=== PATIENT | female | born 2000 | race Caucasian/White ===

== ENCOUNTER → 2023-09-06 | Outpatient (CLI) | payer BC ==
[~2023-09-06] MED LIST: CODGUAEL PO; FALMINA-28 TAB1 EACH PO; IBUP600 PO; ONDA4ODT MM
== END ==
LOC: LAB SHORT 10:13 → LAB 10:13
DX: Z32.00 Encounter for pregnancy test, result unknown (principal)
CPT/HCPCS: 84703

== ENCOUNTER → 2023-10-09 | Outpatient (CLI) | payer BC | LOC: LAB 16:05 → LAB SHORT 16:05 | PROVIDERS: Family Medicine | DX: Z01.419 Encounter for gynecological examination (general) (routine) without abnormal findings (principal) | CPT/HCPCS: G0123 ==

== ENCOUNTER → 2023-11-18 | Outpatient (CLI) | payer BC ==
[2023-11-18 16:32] LABS: BASOPHILS ABSOLUTE AUTO 0.04 K/mm3 (0.00-0.23); BASOPHILS PERCENT AUTO 1 % (0-2); EOSINOPHILS ABSOLUTE AUTO 0.01 K/mm3 (0.00-0.68); EOSINOPHILS PERCENT AUTO 0 % (0-6); Hematocrit 40.3 % (33.0-51.0); IMMATURE GRAN ABSOLUTE AUTO 0.02 K/mm3 (0.00-0.10); IMMATURE GRAN PERCENT AUTO 0 % (0-1); LYMPHOCYTES ABSOLUTE AUTO 1.51 K/mm3 (0.84-5.20); LYMPHOCYTES PERCENT AUTO 17 % (21-46); MONOCYTES ABSOLUTE AUTO 0.41 K/mm3 (0.16-1.47); MONOCYTES PERCENT AUTO 5 % (4-13); Mean Corpuscular HGB 30.6 pg (26.0-34.0); Mean Corpuscular HGB Conc 34.7 g/dL (31.5-36.5); Mean Corpuscular Volume 88 fL (80-100); Mean Platelet Volume 11.4 fL (9.1-12.4); NEUTROPHILS ABSOLUTE AUTO 6.69 K/mm3 (1.96-9.15); NEUTROPHILS PERCENT AUTO 77 % (41-73); Platelet Count 101 K/mm3 (150-400); RDW Standard Deviation 38.5 fL (35.1-46.3); Red Blood Cell Count 4.58 M/mm3 (3.80-5.20); White Blood Cell Count 8.68 K/mm3 (4.00-11.30)
[2023-11-18 16:46] LABS: Albumin, Blood 4.4 g/dL (3.4-5.0); Albumin/Globulin Ratio 1.3 (0.8-1.8); Bilirubin, Total 0.6 mg/dL (0.1-1.0); Bun/Creatinine Ratio 29.3 (12.0-20.0); Calcium, Blood 9.8 mg/dL (8.5-10.1); Creatinine, Blood 0.55 mg/dL (0.40-1.00); Globulin, Blood 3.5 g/dL (2.2-4.0); Potassium, Blood 3.6 mmol/L (3.5-5.5); Total Protein, Blood 7.9 g/dL (6.4-8.2)
== END | disposition home or self-care (01) ==
LOC: LAB SHORT 12:40
PROVIDERS: Family Medicine
DX: R11.10 Vomiting, unspecified (principal)
CPT/HCPCS: 80053; 83690; 85025

== ENCOUNTER 2025-03-04 21:44 | Inpatient (IN) | payer BC ==
[~2025-03-04] VITALS: Ht 165.1 cm; Wt 76.0 kg
[2025-03-04 22:26] LABS: BASOPHILS ABSOLUTE AUTO 0.04 K/mm3 (0.00-0.23); BASOPHILS PERCENT AUTO 0 % (0-2); EOSINOPHILS ABSOLUTE AUTO 0.01 K/mm3 (0.00-0.68); EOSINOPHILS PERCENT AUTO 0 % (0-6); Hematocrit 43.5 % (33.0-51.0); Hemoglobin 15.3 g/dL (11.5-16.0); IMMATURE GRAN ABSOLUTE AUTO 0.02 K/mm3 (0.00-0.10); IMMATURE GRAN PERCENT AUTO 0 % (0-1); LYMPHOCYTES ABSOLUTE AUTO 0.41 K/mm3 (0.84-5.20); LYMPHOCYTES PERCENT AUTO 4 % (21-46); MONOCYTES ABSOLUTE AUTO 0.28 K/mm3 (0.16-1.47); MONOCYTES PERCENT AUTO 3 % (4-13); Mean Corpuscular HGB 30.2 pg (26.0-34.0); Mean Corpuscular HGB Conc 35.2 g/dL (31.5-36.5); Mean Corpuscular Volume 86 fL (80-100); Mean Platelet Volume 10.9 fL (9.1-12.4); NEUTROPHILS ABSOLUTE AUTO 10.49 K/mm3 (1.96-9.15); NEUTROPHILS PERCENT AUTO 93 % (41-73); Platelet Count 283 K/mm3 (150-400); RDW Coefficient Variation 12.1 % (11.7-14.2); RDW Standard Deviation 38.1 fL (35.1-46.3); Red Blood Cell Count 5.06 M/mm3 (3.80-5.20); White Blood Cell Count 11.25 K/mm3 (4.00-11.30)
[2025-03-04 22:38] LABS: Albumin, Blood 4.4 g/dL (3.4-5.0); Albumin/Globulin Ratio 1.2 (0.8-1.8); Bilirubin, Total 0.8 mg/dL (0.1-1.0); Calcium, Blood 9.4 mg/dL (8.5-10.1); Creatinine, Blood 0.68 mg/dL (0.40-1.00); Globulin, Blood 3.7 g/dL (2.2-4.0); Potassium, Blood 3.7 mmol/L (3.5-5.5); Total Protein, Blood 8.1 g/dL (6.4-8.2)
[2025-03-04] MEDS ORDERED: Ketorolac Tromethamine 30mg Vial IV ONE (23:15)
[2025-03-04] MEDS ORDERED: Ondansetron HCl 2 MG / ML 2ML Vial IV ONE (23:15)
[2025-03-04] MEDS ORDERED: NS 1,000 ML IV SCH (23:15)
[2025-03-05] VITALS (16 sets, daily range): BP systolic 100–127; BP diastolic 43–98
[2025-03-05 01:45] LABS: Bilirubin, Urine Neg (Neg); Blood, Urine 1+ (Neg); Glucose Qualitative, Urine Neg (Neg); Ketones, Urine 1+ (Neg); Leukocyte Esterase, Urine 1+ (Neg); Nitrite, Urine Neg (Neg); Protein, Urine 1+ (Neg); Urobilinogen, Urine NORM (Normal)
[2025-03-05 01:54] LABS: Appearance, Urine Hazy (Clear); Color, Urine Yellow (P-Yellow)
[2025-03-05 01:56] LABS: Bacteria Mod /hpf; Mucus Light (0-Heavy); Red Blood Cells, Urine 0-2 /hpf (0-2); Squamous Epithelial Cells Many /hpf (Few); White Blood Cells, Urine 0-2 /hpf (0-5)
[2025-03-05] MEDS ORDERED: Morphine Sulfate 4 MG/1 ML Injection IV ONE (02:55)
[2025-03-05] MEDS ORDERED: Morphine Sulfate 4 MG/1 ML Injection IV PRN ×2 (03:05→16:40)
[2025-03-05] MEDS ORDERED: Ondansetron HCl 2 MG / ML 2ML Vial IV PRN ×2 (03:05→16:40)
[2025-03-05] MEDS ORDERED: MEDROXYPRO150 MG/29 IM (04:28)
--- NOTE | 2025-03-05 04:37 | NUR ---
ASSUMPTION OF CARE: GOT REPORT FROM [facility] GE[facility]GES AT 0430 AND PT IS ON HER WAY TO MEDICAL FLOOR 326. ASSUMED CARE AT 0440.PT IS NPO.
[2025-03-05] MEDS ORDERED: Ketorolac Tromethamine 15mg Vial IV PRN (06:00)
[2025-03-05] MEDS ORDERED: Lactated Ringer's 1,000 ML IV SCH (14:30)
--- NOTE | 2025-03-05 15:52 | NUR ---
PT INTO PACU FROM RM 326 VIA W/C AT 1540. PLEASANT & COOPERATIVE. TRANSFERED GURNEY & WARM BLANKETS PLACED. DENIES PAIN/NAUSEA AT THIS TIME. AFEBRILE/VSS. SURGICAL PACK COMPLETE. PAS SLEEVES/SURGICAL HAT/BP CUFF PLACED. NO COMPLAINTS. RESTING QUIETLY.
[2025-03-05] MEDS ORDERED: propofoL 100 ML IV ONE (15:57)
[2025-03-05] MEDS ORDERED: Midazolam HCL 1 MG/ML 5MLVIAL ONE (15:57)
--- NOTE | 2025-03-05 15:58 | NUR ---
1555: ELIZABETH EUBANKS CRNA AT [facility] SPEAKING w/PATIENT & SIGNING CONSENTS FOR SURGERY. APPEARS COMFORTABLE & RELAXED.
--- NOTE | 2025-03-05 16:00 | NUR ---
PT TAKEN TO PREOP. ALL BELONGINGS SENT WITH PT FAMILY. REPORT GIVEN TO RN ON SURGICAL FLOOR.
[2025-03-05] MEDS ORDERED: Bupivacaine 0.5% HCl 5 MG/ML 30MLVIAL ONE (16:02)
[2025-03-05] MEDS ORDERED: propofoL 20 ML IV ONE (16:04)
[2025-03-05] MEDS ORDERED: FentaNYL Citrate 50 MCG/ML 2 ML Injection ONE ×4 (16:04→18:00)
[2025-03-05] MEDS ORDERED: CeFAZolin Sodium 2,000 MG in NS 100 ML IV SCH (16:05)
--- NOTE | 2025-03-05 16:13 | NUR ---
1612: PT TRANSFERED TO OR 2 VIA GURNEY IN STABLE CONDITION.
[2025-03-05] MEDS ORDERED: Albuterol 2.5 MG/3 ML VIAL INH PRN (16:35)
[2025-03-05] MEDS ORDERED: FentaNYL Citrate 50 MCG/ML 2 ML Injection IV PRN ×2 (16:35→16:40)
[2025-03-05] MEDS ORDERED: HYDROmorphone HCl/Pf 1MG SYR IV PRN (16:40)
[2025-03-05] MEDS ORDERED: Metoclopramide HCl 5MG / ML 2ML Vial IV PRN (16:40)
[2025-03-05] MEDS ORDERED: Dexamethasone Sod Phos 10 MG/ML 1ML VIAL ONE (16:56)
[2025-03-05] MEDS ORDERED: Sugammadex Sodium 200 MG/2ML SDV (100 MG/ML) ONE (16:56)
[2025-03-05] MEDS ORDERED: Ondansetron HCl 2 MG / ML 2ML Vial ONE (16:56)
[2025-03-05] MEDS ORDERED: Phenylephrine HCl 100 MCG/ML-NS 10MLSYR (1MG/10ML) ONE (16:56)
[2025-03-05] MEDS ORDERED: Metoclopramide HCl 5MG / ML 2ML Vial ONE (17:56)
--- NOTE | 2025-03-05 19:10 | NUR ---
PACU TO 227/SHIFT SUMMARY PT BROUGHT OUT TO ROOM 227 FROM PACU, A/OX4, VSS, TOLERATING PO, PAIN MANAGED FROM PACU, GROGGY BUT WAKES TO VERBAL STIMULI, 4 LAP SITES IN TOTAL (THREE WITH STERI STRIPS AND ONE WITH GAUZE/TEGADERM). POST OP VITALS STARTED, CALL LIGHT IN REACH.
[2025-03-06 03:47] VITALS: BP 109/70
--- NOTE | 2025-03-06 06:35 | NUR ---
NOC SUMMARY- PT PAIN MANAGED WELL. PT TOLERATING PO INTAKE. PT AMBULATING AND VOIDING. PT HAS BEEN RESTING COMFORTABLY. PT DENIES N/V. PT LAP SITES C/D/I.
[2025-03-06 07:11] VITALS: BP 112/86
[2025-03-06] MEDS ORDERED: OXYC5 PO (08:38)
--- NOTE | 2025-03-06 09:19 | NUR ---
DISCHARGE SUMMARY PT IS TOLERATING FOOD AND FLUIDS WELL. STATES NO PAIN OR NAUSEA. AMBULATING INDEPENDENTLY AND VOIDED SUCCESSFULLY. LAP SITES x3, WNL. DISCHARGE INSTRUCTIONS REVIEWED AND GIVEN, ESCORTED OUT VIA WC.
== END 2025-03-06 09:04 | disposition home or self-care (01) | DRG 419 ==
LOC: ER 21:44 → MEDS 03-05 03:14 → ERHOLD 03-05 03:14 → MEDS 03-05 04:42 → SURS 03-05 18:07
PROVIDERS: Student in an Organized Health Care Education/Training Program; ADMIT Surgery
PROC: 0FT44ZZ Resection of Gallbladder, Percutaneous Endoscopic Approach (ICD-10-PCS; principal; 2025-03-05 15:15)
DX: K80.10 Calculus of gallbladder with chronic cholecystitis without obstruction (principal); F17.290 Nicotine dependence, other tobacco product, uncomplicated; F10.90 Alcohol use, unspecified, uncomplicated; Z79.899 Other long term (current) drug therapy; Z79.1 Long term (current) use of non-steroidal anti-inflammatories (NSAID); Z87.19 Personal history of other diseases of the digestive system; Z90.89 Acquired absence of other organs; Z98.890 Other specified postprocedural states
CPT/HCPCS: 71260; 76705; 80053; 81001; 81025; 83690; 85025; 87086; 88304; 93005; 93010; 94760; 96374; 96375; 99285-25; G0378; J1100; J1885; J2250; J2270; J2371; J2405; J2704; J2765; J3010; J7030; J7120; Q9967